=== PATIENT | male | born 1955 | race Caucasian/White ===

== ENCOUNTER 2017-08-28 21:51 | Emergency (ER) | payer BC ==
[2017-08-28 22:00] VITALS: BP 131/75
[2017-08-28] MEDS ORDERED: Lidocaine 1% MPF wEPI 200,000* 30 ML SDV INJ ONE (22:09)
--- NOTE | 2017-08-28 22:33 | UC ---
Laceration HPI - HPI Summary HPI Summary: C/O left knee laceration via jowl trimmer and would not stop bleeding. - History Of Current Complaint Chief Complaint: UCLaceration Stated Complaint: LEFT KNEE LACERATION Time Seen by Provider: 08/28/17 22:02 Hx Obtained From: Patient Laceration Location: Thigh - lower left leg above the knee. Mechanism Of Injury: Sharp Trauma Onset/Duration: Sudden Onset, Lasting Hours - 5 Severity: Mild Aggravating Factors: Movement - Allergies/Home Medications Allergies/Adverse Reactions: Allergies Allergy/AdvReac Type Severity Reaction Status Date / Time No Known Allergies Allergy Verified 08/28/17 22:00 Home Medications: Home Medications Levothyroxine TAB* [Synthroid TAB*] 125 mcg PO DAILY 08/28/17 [History Confirmed 08/28/17] PMH/Surg Hx/FS Hx/Imm Hx Endocrine History: Hypothyroidism - Surgical History Surgical History: Yes Surgery Procedure, Year, and Place: BILATERAL HIP REPLACEMENT. RIGHT ELBOW. AVM MALFORMATION x2 PROCEDURES. LEFT SHOULDER. LEFT KNEE - Family History Known Family History: Positive: Cardiac Disease, Diabetes - Social History Occupation: Employed Full-time Lives: With Family Alcohol Use: Weekly Substance Use Type: None Smoking Status (MU): Never Smoked Tobacco Have You Smoked in the Last Year: No Review of Systems Is Patient Immunocompromised?: No All Other Systems Reviewed And Are Negative: Yes Physical Exam Triage Information Reviewed: Yes Appearance: Well-Appearing, No Pain Distress, Well-Nourished Vital Signs: Initial Vital Signs Temp 98.1 F 08/28/17 21:55 Pulse 63 08/28/17 21:55 Resp 16 08/28/17 21:55 BP 131/75 08/28/17 21:55 Pulse Ox 99 08/28/17 21:55 Vital Signs Reviewed: Yes Eyes: Positive: Conjunctiva Clear Neck exam: Normal Respiratory Exam: Normal Cardiovascular Exam: Normal Musculoskeletal Exam: Normal Neurological Exam: Normal Psychological Exam: Normal Skin: Positive: Other - laceration left thigh just above knee Laceration Repair - Laceration Repair 1 Description: Linear Laceration Size After Repair: Length (cm) - 1.2 Modified For Repair: No Type Injection: Local Anesthesia Used: 1.0% Lido Additive Used (in ml): Epi Cleansing Completed Via Routine Prep: Yes Irrigation With Pressure Irrigation Device: Yes Closure Material: Sutures Closure Method: Single Layer Suture Of: Skin - #8 sutures, running Suture Type: Nylon - 4-0 Laceration Course/Dx - Differential Dx - Laceration/Wound Differental Diagnoses: Abrasion, Foreign Body, Laceration Provider Diagnoses: Laceration left leg Discharge - Discharge Plan Condition: Stable Disposition: HOME Patient Education Materials: Laceration (ED), Care For Your Stitches (ED) Referrals: Sunil BONILLA,Brandon Berry [Primary Care Provider] - Additional Instructions: Yes, it is ok to shower tomorrow. Use antibiotic ointment with a bandaid twice a day. Return for suture removal in 10 days.
== END 2017-08-28 22:46 | disposition home or self-care (01) ==
LOC: UCCORT 21:51
DX: S71.112A Laceration without foreign body, left thigh, initial encounter (principal); W29.3XXA Contact with powered garden and outdoor hand tools and machinery, initial encounter; Y93.9 Activity, unspecified; Y92.9 Unspecified place or not applicable; E03.9 Hypothyroidism, unspecified; Z96.643 Presence of artificial hip joint, bilateral
CPT/HCPCS: 12001; 99201; G0463; J2001

== ENCOUNTER 2019-02-02 19:28 | Emergency (ER) | payer MEDICARE ==
--- OUTSIDE RECORDS SUMMARY | 2019-02-02 20:15 | XMS REPORT | Continuity of Care Document ---
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 Payers Date Identification Numbers Payment Provider Subscriber Effective: 2013 Policy Number: [id number] [facility] Commercial Richard Veras PayID: [id number] [address] [address] [id number] [id number] Advance Directives Description No Information Available Problems Active Problems Provider Date Localized, primary osteoarthritis of the Bautista Lacey MD Onset: 01/19 pelvic region and thigh Screening for malignant neoplasm of Brandon Barber MD Onset: 11/23/2005 prostate 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 knee replacement-infected.age 76- 10/2009 arthritic....79 yo/2011/circulation First Brother due to Sudden () - AGE 50 ? 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 ETOH Use Rarely consumes alcohol Tobacco Use Start: Unknown Patient has never smoked Exercise Type/Frequency Exercises regularly Does aerobics 4 x/week and lifts weights 4 x/week Allergies, Adverse Reactions, Alerts Description No Known Drug Allergies Medications Active Medications SIG Qnty Indications Ordering Provider Date Doxycycline 2 tablets by 2caps S20.462A Helder Adame, 01/12/2019 Monohydrate mouth at once DO 100mg Capsules Levothyroxine Sodium Take 1 Tablet 90tabs E03.9 Deepthi, 01/19/2014 Daily MD Bautista 125mcg Tablets [facility] 2 daily Brandon Barber, 11/20/2009 Glucosamine-Chondroiti n 500-400mg Tablets [place] 50 1 Qo Day Brandon Barber, 11/20/2009 1000mg MD Capsules Multiple Vitamin 1/2 PO qd OTC Unknown 12/27/2007 Tablets History Medications Bactrim DS 1 pill twice a 20tabs 790.93 Bautista Lacey, 01/28/2015 - day for 10 02/07/2015 800-160mg Tablets days Aspirin Adult Low 1 po qHS Bautista Lacey 12/30/2011 - Strength J 02/02/[address] Immunizations CPT Code Status Date Vaccine Reaction Lot # [id number] Given 07/14/2017 Afluria Imunization [place] 03020 Given 08/30/2015 Influenza Vaccine Preservative Free 6-35 [place] Months Of Age [address] Given 06/21/2013 Afluria Or Fluvirin Flu Vac Intramuscular 28614 Given 01/18/2013 Tetanus And Diptheria Toxoids For Adult Use-preservative free Vital Signs Date Vital Result Comment 01/12/2019 10:53am Weight 199.00 lb Heart Rate 68 /min BP Systolic 124 mmHg BP Diastolic 70 mmHg Height 72.5 inches 6'0.50" BMI (Body Mass Index) 26.6 kg/m2 02/04/2018 8:06am Weight 194.00 lb Heart Rate 66 /min BP Systolic 120 mmHg BP Diastolic 70 mmHg Respiratory Rate 18 /min Height 72.5 inches 6'0.50" BMI (Body Mass Index) 25.9 kg/m2 11/22/2017 4:31pm Body Temperature 97.4 F Heart Rate 60 /min BP Systolic 118 mmHg BP Diastolic 80 mmHg Respiratory Rate 12 /min 02/02/2017 8:06am Weight 199.00 lb Heart Rate 72 /min BP Systolic 118 mmHg BP Diastolic 72 mmHg Respiratory Rate 18 /min Height 72.5 inches 6'0.50" BMI (Body Mass Index) 26.6 kg/m2 01/31/2016 8:09am Weight 198.00 lb Heart Rate 74 /min BP Systolic 120 mmHg BP Diastolic 70 mmHg Respiratory Rate 18 /min Height 72.25 inches 6'0.25" BMI (Body Mass Index) 26.7 kg/m2 04/01/2015 8:39am Weight 201.00 lb Heart Rate 72 /min BP Systolic 136 mmHg L/Reg BP Diastolic 86 mmHg L/Reg Respiratory Rate 18 /min Height 72.25 inches 6'0.25" BMI (Body Mass Index) 27.1 kg/m2 01/28/2015 8:16am Weight 198.00 lb Up 3# Heart Rate 74 /min BP Systolic 128 mmHg L/Reg BP Diastolic 76 mmHg L/Reg Respiratory Rate 16 /min Height 72.25 inches 6'0.25" BMI (Body Mass Index) 26.7 kg/m2 01/19/2014 8:58am BP Systolic 118 mmHg L at rest BP Diastolic 80 mmHg L at rest 01/19/2014 8:58am Weight 195.00 lb Down 6# Heart Rate 74 /min BP Systolic 134 mmHg L/Reg BP Diastolic 90 mmHg L/Reg Respiratory Rate 17 /min Height 72.4 inches 6'0.40" 12/27/2013 1:45pm Body Temperature 97.1 F Weight 201.00 lb Heart Rate 63 /min BP Systolic 116 mmHg BP Diastolic 80 mmHg Respiratory Rate 18 /min Height 73.5 inches 6'1.50" 11/14/2013 10:00am Body Temperature 97.3 F Weight 205.00 lb Heart Rate 68 /min BP Systolic 110 mmHg BP Diastolic 76 mmHg Respiratory Rate 18 /min Height 73.5 inches 6'1.50" 11/02/2013 10:31am Body Temperature 97.9 F Weight 199.00 lb Same Heart Rate 66 /min BP Systolic 122 mmHg L/Reg BP Diastolic 70 mmHg L/Reg Respiratory Rate 18 /min Height 73.5 inches 6'1.50" Results Test Date Facility Test Result H/L Range Note Basic (BMP) 01/28/2018 [facility] Sodium 142 mmol/L 135-146 1, 2 Potassium 4.1 mmol/L 3.5-5.2 Chloride# 108 mmol/L 97-110 3 Carbon Dioxide 27 mmol/L 24-34 Glucose 96 mg/dL 70-105 BUN 24 mg/dL 6-26 Creatinine 1.1 mg/dL 0.5-1.4 Calcium 8.6 mg/dL 8.5-10.2 Non Antonette Egfr >60 >60 4 Antonette Egfr >60 >60 5 Anion Gap 7 mmol/L 5-15 6 Laboratory test finding 01/28/2018 [facility] TSH 1.44 uIU/mL 0.35-4.94 PSA 1.040 ng/mL 0.000-4.000 7 Laboratory test finding 01/26/2017 [facility] Cholesterol 184 mg/dL 50-199 8 HDL 70 mg/dL 29-71 9 PSA 1.140 ng/mL 0.000-4.000 10 Laboratory test finding 01/26/2017 [facility] TSH 1.53 uIU/mL 0.35-4.94 Basic (BMP) 01/26/2017 [facility] Sodium 141 mmol/L 135-146 11 Potassium 4.4 mmol/L 3.5-5.2 Chloride# 106 mmol/L 97-110 12 Carbon Dioxide 32 mmol/L 24-34 Glucose 101 mg/dL 70-105 BUN 17 mg/dL 6-26 Creatinine 1.1 mg/dL 0.5-1.4 Calcium 8.8 mg/dL 8.5-10.2 Non Antonette Egfr >60 >60 13 Antonette Egfr >60 >60 14 Anion Gap 7 mmol/L 7-16 15 Laboratory test 12/23/2016 [facility] [place],Plasma 2.8 ug/L High 0.0-0.9 16, 17 finding (315)- - Chromium,Plasma 3.7 ug/L Abnormal 0.1-2.1 18 Laboratory test 01/17/2016 [facility] [place],Plasma See Note 19 finding (315)- - Chromium,Plasma See Note 20 Laboratory test 01/17/2016 [facility] Thyroid Stim 1.59 uIU/mL 0.30-4.20 finding (315)- - Hormone LDL Cholesterol 01/17/2016 [facility] Cholesterol 173 mg/ dL <200 21 Profile (315)- - Triglycerides 38 mg/dL <150 22 HDL Cholesterol 69 mg/dL >40 23 LDL-Cholesterol 96 mg/dL < 100 24 Basic Metabolic Panel 01/17/2016 [facility] Glucose 90 mg /dL 74-106 (315)- - BUN 22 mg/dL High 7-18 Creatinine 1.1 mg/dL 0.6-1.3 Glom Filtration Rate, Estimate >60 mL/min >60 If >60 mL/min >60 25 BUN/Creat 20.0 ratio Sodium 140 mmol/L 136-145 Potassium 3.9 mmol/L 3.5-5.1 Chloride 106 mmol/L 98-107 Carbon Dioxide 30 mmol/L 21-32 Anion Gap 4 mEq/L Low 8-16 Calcium 9.1 mg/dL 8.5-10.1 26 Laboratory test 01/17/2016 [facility] Prostate 1.07 ng/ mL 27 finding (315)- - Specific Antigen Laboratory test 09/11/2015 [facility] Prostate 1.12 ng/ mL 28 finding (315)- - Specific Antigen PSA Total And Free 03/25/2015 [facility] PSA Total 1.4 ng/mL (0.0-4. 29 -RL 0) PSA Free 0.3 ng/mL PSA % Free 21 % 30 Laboratory test finding 01/23/2015 [facility] TSH 2.03 uIU/mL 0.34-5.60 31 PSA 4.490 ng/mL High 0.000-4.000 32 Lipid 01/23/2015 [facility] Cholesterol 184 mg/dL 50-199 Triglycerides 49 mg/dL 30-200 HDL 63 mg/dL 29-71 33 Chol/ HDL Ratio 2.9 ratio Low 4.0-6.7 VLDL 10 mg/dL 2-29 LDL (Calc) 111 mg/dL High 20-99 34 Basic (BMP) 01/23/2015 [facility] Sodium 138 mmol/L 134-142 Potassium 4.7 mmol/L 3.5-5.2 Chloride 103 mmol/L 97-109 Carbon Dioxide 30 mmol/L 24-34 Glucose 97 mg/dL 70-105 BUN 19 mg/dL 6-26 Creatinine 1.0 mg/dL 0.5-1.4 Calcium 9.0 mg/dL 8.5-10.2 Anion Gap 10 mmol/L 6-14 Non Antonette Egfr >60 >60 35 Antonette Egfr >60 >60 36 Laboratory test finding 03/27/2014 [facility] TSH 1.30 uIU/ml 0.50- 6.00 Laboratory test finding 01/11/2014 N2N/[facility] Import BUN 20.0 mg/dL 9.0- 21.0 BUN/Creat Ratio 20.0 ratio 12.0-20.0 Calcium 8.8 mg/dL 8.7-10.5 Chloride 106.0 mmol/L 98.0-107.0 Co2 28.0 mmol/L 22.0-30.0 Creatinine-Serum 1.0 mg/dL 0.8-1.5 Glucose 96.0 mg/dL 75.0-110.0 PSA 1.2 ng/mL 0.0-4.0 Potasium 4.2 mmol/L 3.6-5.0 Sodium 141.0 mmil/L 137.0-145.0 TSH 0.26 uIU/ml Low 0.50-6.00 eGFR 81.0 Laboratory test finding 03/23/2013 N2N/[facility] Import FT4 1.38 ng/dL 0.75- 1.54 TSH 0.22 uIU/ml Low 0.50-6.00 Laboratory test finding 01/13/2013 N2N/CCD Import % Baso. 1.4 % 0.0-2.0 % Eos. 2.7 % 0.0-4.0 % Lymph 28 % 20-44 % Rice 10.9 % High 2.0-10.0 % Luis Armando 57 % 50-70 Absolute Baso. 0.1 K/ul 0.0-0.3 Absolute Eos. 0.1 K/ul 0.0-0.5 Absolute Lymph. 1.1 K/ul 0.8-4.8 Absolute Rice. 0.4 K/ul 0.1-1.0 Absolute Luis Armando. 2.27 K/ul 2.05-7.63 BUN 23.0 mg/dL High 9.0-21.0 BUN/Creat Ratio 20.9 ratio High 12.0-20.0 Calcium 9.3 mg/dL 8.7-10.5 Chloride 105.0 mmol/L 98.0-107.0 Co2 26.0 mmol/L 22.0-30.0 Creatinine-Serum 1.1 mg/dL 0.8-1.5 Glucose 99.0 mg/dL 75.0-110.0 HCT 47.9 % 37.0-51.0 HGB 15.7 Gm/dl 12.0-16.0 MCH 31.9 pg 26.0-32.0 MCHC 32.9 g/dL 31.0-36.0 MCV 97.0 Fl 80.0-97.0 MPV 7.9 fL 6.0-10.0 PLT 190 K/ul 140-440 PSA 0.7 ng/mL 0.0-4.0 Potasium 4.3 mmol/L 3.6-5.0 RBC 4.9 M/ul 4.2-6.3 RDW 11.4 % Low 11.5-14.5 Sodium 141.0 mmil/L 137.0-145.0 TSH 0.16 uIU/ml Low 0.50-6.00 WBC 4.0 K/ul Low 4.1-10.9 eGFR 72.8 Lipid Panel 01/13/2013 N2N/[facility] Import Chol/HDL Ratio 2.9 ratio Cholesterol 189.0 mg/dL 50.0-199.0 HDL 66.0 mg/dL 29.0-67.0 LDL, Calculated 114.4 mg/dL 20.0-129.0 Triglycerides 43.0 mg/dL 30.0-249.0 vLDL 8.6 ng/dL 1 02/11 preOV 2 Updated reference range on new analyzer 3 Updated reference range on new analyzer 4 Concerning GFR Guidelines: Normal function or mild renal disease, if clinically at risk: >/=60 mL/min Moderately decreased: 30-59 Severely decreased: 15-29 Renal failure: <15 Glomerular Filtration Rate (GFR) is estimated based on the MDRD equation, which assumes a steady state for creatinine as recommended by the National Kidney Disease Education Program in conjunction with the National Institutes of Health and the National Kidney Foundation. Clinical conditions in which it may be necessary to measure GFR by using clearance methods include extremes of age and body size, severe malnutrition or obesity, diseases of skeletal muscle, paraplegia or quadriplegia, vegetarian diet, rapidly changing kidney function, and calculation of the dose of potentially toxic drugs that are excreted by the kidneys. 5 Concerning GFR Guidelines for Americans: Normal function or mild renal disease, if clinically at risk: >/=60 mL/min Moderately decreased: 30-59 Severely decreased: 15-29 Renal failure: <15 6 Updated Reference Range 7 Beginning 11/22/06 PSA values assayed at [facility] uses chemiluminescence methodology manufactured by [employer] for use on the DXI analyzer. Values obtained with different assay methods or kits can not be used interchangeably. Serum PSA measurement is not an absolute test for malignancy. The PSA value should be used in conjunction with information available from clinical evaluation and other diagnostic procedures. 8 02/10 preOV 9 Per NCEP ATP III Guidelines: Results lower than 40 mg/dL are suggestive of increased risk for coronary artery disease. Results > or=to 60 mg/dL are considered a negative risk factor. 10 Beginning 11/22/06 PSA values assayed at [facility] uses chemiluminescence methodology manufactured by [employer] for use on the DXI analyzer. Values obtained with different assay methods or kits can not be used interchangeably. Serum PSA measurement is not an absolute test for malignancy. The PSA value should be used in conjunction with information available from clinical evaluation and other diagnostic procedures. 11 Updated reference range on new analyzer 12 Updated reference range on new analyzer 13 Concerning GFR Guidelines: Normal function or mild renal disease, if clinically at risk: >/=60 mL/min Moderately decreased: 30-59 Severely decreased: 15-29 Renal failure: <15 Glomerular Filtration Rate (GFR) is estimated based on the MDRD equation, which assumes a steady state for creatinine as recommended by the National Kidney Disease Education Program in conjunction with the National Institutes of Health and the National Kidney Foundation. Clinical conditions in which it may be necessary to measure GFR by using clearance methods include extremes of age and body size, severe malnutrition or obesity, diseases of skeletal muscle, paraplegia or quadriplegia, vegetarian diet, rapidly changing kidney function, and calculation of the dose of potentially toxic drugs that are excreted by the kidneys. 14 Concerning GFR Guidelines for Americans: Normal function or mild renal disease, if clinically at risk: >/=60 mL/min Moderately decreased: 30-59 Severely decreased: 15-29 Renal failure: <15 15 Updated reference range on new analyzer 16 M25.559 T56.2X1A CC: DR COVARRUBIAS - FAXED 12/25 17 Occupational Exposure: ALFRED 1.0 Detection Limit=1.0 18 The specimen was not submitted to the testing laboratory in the preferred certified metal free transfer tube. Abnormal results should be confirmed by collecting the specimens in royal blue metal free vacutainers and submitting the serum or plasma in certified metal free transfer tubes. Detection Limit=0.1 Performed at: [address] [id number] Site Administrator: Clarke Mccann MD, Phone: [phone] [address] ORDERED [address] ORDERED 21 Reference Guidelines*: Desirable: ........... < 200 mg/dL Borderline High: ..... 200-239 mg/dL High: ................ >=240 mg/dL * The National Cholesterol Education Program (NCEP) 22 Reference Guidelines*: Normal: ............. < 150 mg/dL Borderline High: .... 150-199 mg/dL High: ............... 200-499 mg/dL Very High: .......... > 500 mg/dL * Source: National Cholesterol Education Program (NCEP) 23 Reference Guidelines*: Low HDL: ..... < 40 mg/dL Normal: ..... 40-60 mg/dL Desirable: ... > 60 mg/dL *The National Cholesterol Education Program(NCEP) 24 Reference Guidelines*: Optimal:........... <100 mg/dL Near Optimal....... 100-129 mg/dL Borderline High.... 130-159 mg/dL High............... 160-189 mg/dL Very High.......... >=190 mg/dL * Source: National Cholesterol Education Program (NCEP) 25 Note: Persistent reduction for 3 months or more in an eGFR <60 mL/min/1.73 m2 defines CKD. Patients with eGFR values >/=60 mL/min/1.73 m2 may also have CKD if evidence of persistent proteinuria is present. The original MDRD equation for estimated GFR is not valid for patients less than 18 years of age. Additional information may be found at www.kdoqi.org. 26 01/17/16 1708: CA previously reported as: 8.4 L mg/dL Amended result called to: UNABLE TO CALL, OFFICE CLOSED, PLEASE CALL Wednesday - 01/17/16 at 1708 27 THIS ASSAY IS NOT INTENDED A CANCER SCREENING TEST The concentration of PSA in a given specimen, determined with assays from different manufacturers, can vary due to differences in assay methods and reagent specificity. Values obtained from different assay methods cannot be used interchangeably. 28 THIS ASSAY IS NOT INTENDED A CANCER SCREENING TEST The concentration of PSA in a given specimen, determined with assays from different manufacturers, can vary due to differences in assay methods and reagent specificity. Values obtained from different assay methods cannot be used interchangeably. 29 Early March 2015 preOV 30 % FREE PSA PROBABILITY OF CANCER 0 - 10% 56% 10 - 15% 28% 15 - 20% 20% 20 - 25% 16% GREATER THAN 25% 8% THE FREE PSA PERCENTAGE IS AN AID IN DISTINGUISHING PROSTATE CANCER FROM BENIGN PROSTATIC CONDITIONS IN MEN AGE 50 AND OLDER WITH A TOTAL PSA BETWEEN 3 AND 10 NG/ML AND NEGATIVE DIGITAL RECTAL EXAMINATION FINDINGS. PROSTATIC BIOPSY IS REQUIRED FOR THE DIAGNOSIS OF CANCER. (See: DRAKE 1998; 279: 9541-7785) METHOD USED TO ASSAY BOTH FREE PSA AND TOTAL PSA IS JOHN ACCESS IMMUNOASSAY SYSTEM Stadius FREE PSA AND TOTAL PSA. RESULTS SHOULD NOT BE INTERPRETED ABSOLUTE EVIDENCE FOR THE PRESENCE OR ABSENCE OF MALIGNANT DISEASE. VALUES OBTAINED WITH DIFFERENT ASSAY METHODS OR KITS CANNOT BE USED INTERCHANGEABLY. Unless otherwise specified, testing performed by [facility] [place] [facility] [employer] [address] [place] [id number] 31 01/09 preov 32 Beginning 11/22/06 PSA values assayed at [facility] uses an EIA methodology manufactured by [employer] for use on the DXI analyzer. Values obtained with different assay methods or kits can not be used interchangeably. Serum PSA measurement is not an absolute test for malignancy. The PSA value should be used in conjunction with information available from clinical evaluation and other diagnostic procedures. 33 Per NCEP ATP III Guidelines: Results lower than 40 mg/dL are suggestive of increased risk for coronary artery disease. Results > or=to 60 mg/dL are considered a negative risk factor. 34 Per NCEP ATP III Guidelines: Normal Population <130 Patients with medical conditions: CHD/DM Optimal: <100 Borderline high: 130-159 High: 160-189 Very high: >189 35 Concerning GFR Guidelines: Normal function or mild renal disease, if clinically at risk: >/=60 mL/min Moderately decreased: 30-59 Severely decreased: 15-29 Renal failure: <15 Glomerular Filtration Rate (GFR) is estimated based on the MDRD equation, which assumes a steady state for creatinine as recommended by the National Kidney Disease Education Program in conjunction with the National Institutes of Health and the National Kidney Foundation. Clinical conditions in which it may be necessary to measure GFR by using clearance methods include extremes of age and body size, severe malnutrition or obesity, diseases of skeletal muscle, paraplegia or quadriplegia, vegetarian diet, rapidly changing kidney function, and calculation of the dose of potentially toxic drugs that are excreted by the kidneys. 36 Concerning GFR Guidelines for Americans: Normal function or mild renal disease, if clinically at risk: >/=60 mL/min Moderately decreased: 30-59 Severely decreased: 15-29 Renal failure: <15 Procedures Date Code Description Status 07/12/2014 [id number] Colonoscopy Completed Encounters Type Date Location Provider Dx Diagnosis Office Visit 02/04/2018 Bautista Augustin Z00.00 Encntr for general 8:15a adult medical exam w/o abnormal findings E03.9 Hypothyroidism, unspecified Z96.643 Presence of artificial hip joint, bilateral Z12.5 Encounter for screening for malignant neoplasm of prostate Z68.25 Body mass index (BMI) 25.0-25.9, adult Office Visit 11/22/2017 4:30p Bautista Augustin, W57.xxxA Bit/ stung by nonvenom insect & oth nonvenom arthropods, init S30.861A Insect bite (nonvenomous) of abdominal wall, init encntr Office Visit 02/02/2017 8:15a Bautista Augustin MD Z00.00 Encntr for general adult medical exam w/o abnormal findings E03.9 Hypothyroidism, unspecified M16.0 Bilateral primary osteoarthritis of hip Z12.5 Encounter for screening for malignant neoplasm of prostate Office Visit 01/31/2016 8:15a [facility] Bautista Lacey, E03.9 Hypothyroidism, unspecified Z12.5 Encounter for screening for malignant neoplasm of prostate M16.0 Bilateral primary osteoarthritis of hip Z00.00 Encntr for general adult medical exam w/o abnormal findings Office Visit 04/01/2015 8:45a [facility] Bautista Lacey MD 790.93 Elevated Prostate Specific Antigen (PSA) 244.9 Hypothyroidism Other Unspec Office Visit 01/28/2015 8:15a [facility] Bautista Lacey, 244.9 Hypothyroidism Other MD Unspec 715.15 Osteoarthrosis Localized Prim Pelvic & Thigh V70.0 Exam (Adult) General Medical Routine AT [facility] 790.93 Elevated Prostate Specific Antigen (PSA) Plan of Treatment Future Appointment(s):02/01/2019 7:35 am - Schedule, Laboratory at [facility]2018 8:15 am - Bauitsta Lacey MD at [facility]01/12/2019 - Kaci Bennett, PAS20.462A Insect bite (nonvenomous) of LEFT back wall of thorax, initiNew Medication:Doxycycline Monohydrate 100 mg - 2 tablets by mouth at onceComments: Tick bite L backTick was on longer > 36 hoursWill treat with prophylactic doxyDiscussed criteria for prophylaxis with future tick bites - tick on longer & gt; 36 hours/engorged, treatment within 72 hoursDiscussed wearing long sleeves, pants when out in woodsDiscussed s/s of Lyme to monitor for (EM rash, headaches , myalgias, joint pains, etc.)Call with questions/concernsFollow up:PrnZ68.26 Body mass index (BMI) 26.0-26.9, adult
[2019-02-02 20:26] VITALS: BP 124/73
--- NOTE | 2019-02-02 20:37 | UC ---
Skin Complaint HPI - HPI Summary HPI Summary: Exposed to poison mariana last weekend at [facility], washed well, but rash is progressing. Has had in the past, required oral steroids. Has been suing [employer] without success. Has mild URI symptoms. - History of Current Complaint Chief Complaint: UCRash Time Seen by Provider: 02/02/19 20:29 Stated Complaint: RASH ? POISON MARIANA Hx Obtained From: Patient Onset/Duration: Gradual Onset, Lasting Days Skin Exposure Onset/Duration: Days Ago Pain Intensity: 0 Aggravating Factor(s): Clothing, Touch Alleviating Factor(s): OTC Meds Associated Signs & Symptoms: Positive: Negative Similar Episode/Dx as: poison mariana - Allergy/Home Medications Allergies/Adverse Reactions: Allergies Allergy/AdvReac Type Severity Reaction Status Date / Time No Known Allergies Allergy Verified 02/02/19 20:27 PMH/Surg Hx/FS Hx/Imm Hx - Additional Past Medical History Additional PMH: past treatment of AVM right parietal lobe Previously Healthy: Yes Endocrine History: Hypothyroidism - Surgical History Surgical History: Yes Surgery Procedure, Year, and Place: BILATERAL HIP REPLACEMENT. RIGHT ELBOW. AVM MALFORMATION x2 PROCEDURES. LEFT SHOULDER. LEFT KNEE - Family History Known Family History: Positive: Cardiac Disease, Diabetes - Social History Occupation: Employed Full-time Lives: With Family Alcohol Use: Weekly Substance Use Type: None Smoking Status (MU): Never Smoked Tobacco Have You Smoked in the Last Year: No Review of Systems All Other Systems Reviewed And Are Negative: Yes Constitutional: Positive: Negative Skin: Positive: Rash Eyes: Positive: Negative ENT: Positive: Sore Throat, Sinus Congestion Respiratory: Positive: Cough Cardiovascular: Positive: Negative Gastrointestinal: Positive: Negative Genitourinary: Positive: Negative Musculoskeletal: Positive: Negative Neurological: Positive: Negative Physical Exam Triage Information Reviewed: Yes Appearance: Well-Appearing, No Pain Distress Vital Signs: Initial Vital Signs Temp 99.5 F 02/02/19 20:23 Pulse 72 02/02/19 20:23 Resp 16 02/02/19 20:23 BP 124/73 02/02/19 20:23 Pulse Ox 100 02/02/19 20:23 Eyes: Positive: Conjunctiva Clear ENT: Positive: Pharynx normal, TMs normal Respiratory: Positive: Lungs clear, Normal breath sounds Cardiovascular: Positive: RRR, No Murmur Psychological Exam: Normal Skin: Positive: Rashes - extensive rash over forearms, trunk, back of neck, linear excoriations. Course/Dx - Course Course Of Treatment: prednisone for treatment of contact dermatitis. - Differential Diagnoses - Skin Complaint Differential Diagnoses: Cellulitis, Contact Dermatitis, Eczema - Diagnoses Provider Diagnosis: Contact dermatitis Discharge - Sign-Out/Discharge Documenting (check all that apply): Patient Departure All imaging exams completed and their final reports reviewed: No Studies - Discharge Plan Condition: Stable Disposition: HOME Referrals: Bautista Walker MD [Primary Care Provider] - - Billing Disposition and Condition Condition: STABLE Disposition: Home
== END 2019-02-02 20:44 | disposition home or self-care (01) ==
LOC: UCCORT 19:28
DX: L25.9 Unspecified contact dermatitis, unspecified cause (principal)
CPT/HCPCS: 99211; G0463